=== PATIENT | male | born 1990 ===

== ENCOUNTER 2024-02-02 10:22 | Outpatient (RCR) | payer OTHER, SELFPAY | END 2024-04-06 10:23 | disposition home or self-care (01) | LOC: PT 10:22 | PROVIDERS: PCP Nurse Practitioner Family; Visit Provider Physician Assistant Medical | DX: S93.402D Sprain of unspecified ligament of left ankle, subsequent encounter (principal) | CPT/HCPCS: 97110; 97112; 97140; 97161 ==

== ENCOUNTER 2024-03-13 09:11 | Outpatient (OUT) | payer SELFPAY ==
--- NOTE | 2024-03-13 09:18 | MR_ITS ---
The [address] [address] Patient Name: MIKAEL DENNIS MRN: [id number] date: 1990 Sex: M Assigned Patient Location: MRI Current Patient Location: Accession/Order Number: [id number] Exam Date: 03/13/2024 09:50 Report Date: 03/15/2024 08:23 At the request of: KASSY ADAMS Procedure: MR ankle LT wo con EXAM: MR ankle LT wo con REASON FOR EXAM: Left Ankle Sprain. TECHNIQUE: Multiplanar, multisequence imaging of the left ankle was performed without contrast COMPARISON: Radiographs 12/31/2023. FINDINGS: Mild fusiform thickening and intermediate signal the Achilles tendon with distal Achilles enthesophyte is consistent with tendinosis. No tear. The visualized plantar fascia demonstrates normal thickness without tear. Laterally, the peroneal tendons are mildly thickened with intermediate signal consistent with tendinosis. No tear. The superficial peroneal retinaculum is intact. Thickening and intermediate signal the anterior talofibular and calcaneofibular ligaments is consistent with prior lateral ligamentous injury. No evidence of acute lateral ligamentous injury. Medially, mild thickening and intermediate signal of the posterior tibial tendon with mild tenosynovitis. No tear. The flexor pollicis longus and flexor digitorum longus tendons are intact. The deep deltoid ligament is intact. Lisfranc ligament is intact. The visualized spring ligament is intact. Anteriorly, the anterior extensor tendons demonstrate normal thickness and signal without tendinosis or tear. The bone marrow signal is without acute fracture. The talar dome appears congruent. The subtalar joints intact. The sinus tarsi is nonedematous. The midfoot appears congruent. The plantar musculature demonstrates normal bulk and signal. Remaining soft tissues are unremarkable. MR/MR ankle LT wo con IMPRESSION: 1. Sequela of prior lateral ligamentous injury. No evidence of acute ligamentous injury. 2. Peroneal, posterior tibial and Achilles tendinosis without tear. 3. No acute osseous abnormality. Electronically authenticated by: WILFREDO FRIEND Date: 03/15/2024 08:23
== END 2024-03-13 09:12 | disposition home or self-care (01) ==
LOC: MRI 09:13
PROVIDERS: PCP Nurse Practitioner Family; Visit Provider Nurse Practitioner Family
DX: S93.402A Sprain of unspecified ligament of left ankle, initial encounter (principal)
CPT/HCPCS: 73721